=== PATIENT | male | born 1995 | race Caucasian/White ===

== ENCOUNTER → 2017-03-27 | Outpatient (CLI) | payer SELFPAY ==
--- NOTE | 2017-03-27 19:03 | REP ---
Right ankle series, complete: 03/27/2017: Clinical history: Right ankle pain. Findings: Four views show the mortise joint symmetric and preserved. There is no talar dome osteochondral defect. Distal tibia and fibula without fracture or focal lesion. Subtalar joints are intact. There is soft tissue swelling anterior and lateral to the ankle. There are no heel spurs. Talonavicular and calcaneocuboid joints are normal. Impression: 1. Soft tissue swelling anterior to the ankle without fracture, avulsion, disruption of the mortise joint or other acute finding. Signed by Alexi Samaniego MD 03/27/2017 09:28 P
--- NOTE | 2017-03-27 19:04 | REP ---
Right foot complete: 03/27/2017: Clinical history: Right foot pain. Soft tissue swelling of the ankle and hind foot, mild. The articulations of the talus, calcaneus and the tarsal bones as well as tarsal articulations are normal. Metatarsals are unremarkable. Phalanges intact. There is no fracture, subluxation or focal bone lesion. There is minor degenerative change along the lateral aspect of the first TMT joint. There is a bone island in the distal end of the proximal phalanx of the great toe. Impression: 1. Soft tissue swelling ankle and hind foot but no visible or displaced fracture, avulsion or subluxation. 2. Degenerative changes first MTP joint. Signed by Alexi Samaniego MD 03/27/2017 09:29 P
== END ==
LOC: M LRY 18:22
PROVIDERS: ATTEND Physician Assistant
DX: M25.571 Pain in right ankle and joints of right foot (principal); M79.89 Other specified soft tissue disorders; M19.071 Primary osteoarthritis, right ankle and foot

== ENCOUNTER → 2017-03-30 | Outpatient (REF) | payer OTHER | LOC: M SFHCLERA 10:34 | PROVIDERS: ATTEND Nurse Practitioner Family | DX: R53.81 Other malaise (principal) ==

== ENCOUNTER → 2017-04-25 | Outpatient (REF) | payer OTHER | LOC: M SFHCLERA 14:47 | PROVIDERS: ATTEND Nurse Practitioner Family | DX: J02.9 Acute pharyngitis, unspecified (principal) ==

== ENCOUNTER 2019-06-10 17:23 | Emergency (ER) | payer OTHER ==
[~2019-06-10] VITALS: Ht 177.8 cm; Wt 119.7 kg
--- NOTE | 2019-06-10 20:00 | REPVR ---
PROCEDURE INFORMATION: Exam: CT Head Without Contrast Exam date and time: 06/10/2019 7:18 PM Clinical history: 23 years old, male; Injury or trauma; Injury history: Seizure; Initial encounter; Additional info: Witnessed seizure TECHNIQUE: Imaging protocol: Computed tomography of the head without contrast. Radiation optimization: All CT scans at this facility use at least one of these dose optimization techniques: automated exposure control; mA and/or kV adjustment per patient size (includes targeted exams where dose is matched to clinical indication); or iterative reconstruction. COMPARISON: No relevant prior studies available. FINDINGS: Brain: No intracranial mass, mass effect or midline shift. No acute intracranial hemorrhage. No CT evidence of acute cortical infarct. Ventricles: Ventricles, cisterns, and sulci are normal in size for age. Bones/joints: No calvarial fracture or destructive process. Sinuses: Imaged paranasal sinuses are clear. Mastoid air cells: Mastoid air cells are normally aerated. Orbits: Imaged orbits are unremarkable. Soft tissues: No focal extracranial soft tissue swelling. IMPRESSION: No acute or concerning focal intracranial abnormality. Electronically signed by: Stan An On 06/10/2019 19:59:39 PM
[2019-06-10 20:07] LABS: HEMATOCRIT 48.9 % (42.0-52.0); HEMOGLOBIN 16.5 g/dl (13.5-17.5); MEAN CORPUSCULAR HEMOGLOBIN 30.8 pg (27.0-33.0); MEAN CORPUSCULAR HGB CONC 33.7 g/dl (32.0-36.5); MEAN CORPUSCULAR VOLUME 91.4 fl (80.0-96.0); PLATELET COUNT, AUTOMATED 221 10^3/uL (150-450); RED BLOOD COUNT 5.35 10^6/uL (4.30-6.10); WHITE BLOOD COUNT 8.3 10^3/uL (4.0-10.0)
[2019-06-10 20:37] LABS: ALT/SGPT 37 U/L (12-78); BILIRUBIN,TOTAL 0.3 MG/DL (0.2-1.0); BLOOD UREA NITROGEN 14 MG/DL (7-18); CALCIUM LEVEL 8.9 MG/DL (8.5-10.1); CARBON DIOXIDE LEVEL 28 MEQ/L (21-32); CHLORIDE LEVEL 108 MEQ/L (98-107); CREATININE FOR GFR 1.01 MG/DL (0.70-1.30); GLOMERULAR FILTRATION RATE > 60.0 (>60); GLUCOSE, FASTING 91 MG/DL (70-100); POTASSIUM SERUM 4.3 MEQ/L (3.5-5.1); SODIUM LEVEL 141 MEQ/L (136-145); TOTAL PROTEIN 6.9 GM/DL (6.4-8.2)
[2019-06-10 20:47] LABS: AMPHETAMINES LEVEL URINE NEGATIVE (NEGATIVE); BARBITURATES URINE NEGATIVE (NEGATIVE); BENZODIAZEPINES URINE NEGATIVE (NEGATIVE); CANNABINOIDS URINE NEGATIVE (NEGATIVE); COCAINE METABOLITE URINE NEGATIVE (NEGATIVE); METHADONE URINE NEGATIVE (NEGATIVE); OPIATES URINE NEGATIVE (NEGATIVE); PHENCYCLIDINE URINE NEGATIVE (NEGATIVE)
[2019-06-10 21:59] VITALS: BP 135/64
--- NOTE | 2019-06-11 07:51 | ECGEPIP ---
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
== END 2019-06-10 22:04 | disposition home or self-care (01) ==
LOC: M ED 17:23
DX: R25.1 Tremor, unspecified (principal); R00.1 Bradycardia, unspecified; F17.200 Nicotine dependence, unspecified, uncomplicated; F12.10 Cannabis abuse, uncomplicated; Z82.0 Family history of epilepsy and other diseases of the nervous system; Z88.0 Allergy status to penicillin

== ENCOUNTER → 2019-11-27 | Outpatient (CLI) | payer OTHER | LOC: M LABSMTC 10:43 | PROVIDERS: ATTEND Family Medicine | DX: Z11.59 Encounter for screening for other viral diseases (principal); Z20.828 Contact with and (suspected) exposure to other viral communicable diseases ==

== ENCOUNTER 2020-05-12 12:54 | Emergency (ER) | payer OTHER ==
[~2020-05-12] VITALS: Ht 175.3 cm; Wt 129.7 kg
--- NOTE | 2020-05-12 13:49 | REPVR ---
PROCEDURE INFORMATION: Exam: CT Head Without Contrast Exam date and time: 05/12/2020 1:41 PM Age: 24 years old Clinical indication: Syncope and collapse TECHNIQUE: Imaging protocol: Computed tomography of the head without contrast. Radiation optimization: All CT scans at this facility use at least one of these dose optimization techniques: automated exposure control; mA and/or kV adjustment per patient size (includes targeted exams where dose is matched to clinical indication); or iterative reconstruction. COMPARISON: CT Head without contrast 06/10/2019 7:16 PM FINDINGS: Brain: Normal. No hemorrhage. Unremarkable white matter. No mass effect. Ventricles: No ventriculomegaly. Bones/joints: Unremarkable. No acute fracture. Paranasal sinuses: Visualized sinuses are unremarkable. No fluid levels. Mastoid air cells: Visualized mastoid air cells are well aerated. Soft tissues: Unremarkable. IMPRESSION: No acute intracranial abnormality. Electronically signed by: Shantelle Ramirez On 05/12/2020 13:48:58 PM
[2020-05-12 14:14] LABS: BASO # 0.1 10^3/uL (0.0-0.2); BASO % 0.6 % (0.0-1.0); EOS # 0.1 10^3/uL (0.0-0.5); HEMATOCRIT 49.3 % (42.0-52.0); HEMOGLOBIN 16.8 g/dl (13.5-17.5); LYMPH # 2.1 10^3/uL (1.5-5.0); LYMPH % 23.7 % (24.0-44.0); MEAN CORPUSCULAR HEMOGLOBIN 30.6 pg (27.0-33.0); MEAN CORPUSCULAR HGB CONC 34.1 g/dl (32.0-36.5); MEAN CORPUSCULAR VOLUME 89.8 fl (80.0-96.0); MONO # 0.7 10^3/uL (0.0-0.8); MONO % 7.5 % (0.0-5.0); NEUTROPHILS # 5.9 10^3/uL (1.5-8.5); NEUTROPHILS % 66.5 % (36.0-66.0); PLATELET COUNT, AUTOMATED 201 10^3/uL (150-450); RED BLOOD COUNT 5.49 10^6/uL (4.30-6.10); WHITE BLOOD COUNT 8.8 10^3/uL (4.0-10.0)
--- NOTE | 2020-05-12 14:14 | REPVR ---
PROCEDURE INFORMATION: Exam: XR Chest, 1 View Exam date and time: 05/12/2020 1:50 PM Age: 24 years old Clinical indication: Other: Syncope; Additional info: Syncope/near-syncope TECHNIQUE: Imaging protocol: XR of the chest Views: 1 view. COMPARISON: No relevant prior studies available. FINDINGS: Lungs: Unremarkable. No consolidation. Pleural space: Unremarkable. No pleural effusion. No pneumothorax. Heart/Mediastinum: Unremarkable. No cardiomegaly. Bones/joints: There is a mild thoracic dextroscoliosis. IMPRESSION: No evidence for acute pulmonary disease. Electronically signed by: Adeel Anne On 05/12/2020 14:14:01 PM
[2020-05-12] MEDS ORDERED: KEPP1TAB2 PO (14:52)
[2020-05-12 14:53] LABS: BLOOD UREA NITROGEN 16 MG/DL (7-18); CALCIUM LEVEL 9.2 MG/DL (8.5-10.1); CARBON DIOXIDE LEVEL 26 MEQ/L (21-32); CHLORIDE LEVEL 110 MEQ/L (98-107); ETHYL ALCOHOL (ETHANOL) < 0.003 % (0.000-0.010); FREE T4 0.98 NG/DL (0.76-1.46); GLOMERULAR FILTRATION RATE > 60.0 (>60); GLUCOSE, FASTING 87 MG/DL (70-100); POTASSIUM SERUM 3.9 MEQ/L (3.5-5.1); SODIUM LEVEL 139 MEQ/L (136-145)
[2020-05-12 15:36] LABS: AMPHETAMINES LEVEL URINE NEGATIVE (NEGATIVE); BARBITURATES URINE NEGATIVE (NEGATIVE); BENZODIAZEPINES URINE NEGATIVE (NEGATIVE); CANNABINOIDS URINE POSITIVE (NEGATIVE); COCAINE METABOLITE URINE NEGATIVE (NEGATIVE); METHADONE URINE NEGATIVE (NEGATIVE); OPIATES URINE NEGATIVE (NEGATIVE); PHENCYCLIDINE URINE NEGATIVE (NEGATIVE)
[2020-05-12 15:45] VITALS: BP 128/74
--- NOTE | 2020-05-12 20:35 | ECGEPIP ---
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
== END 2020-05-12 15:55 | disposition home or self-care (01) ==
LOC: M ED 12:54
DX: R56.9 Unspecified convulsions (principal); F90.9 Attention-deficit hyperactivity disorder, unspecified type; F17.200 Nicotine dependence, unspecified, uncomplicated; Z88.0 Allergy status to penicillin
CPT/HCPCS: 36415; 70450; 71045; 80048; 80307; 83735; 84439; 84443; 85025; 93005; 93041; 94760; 99285; G0480

== ENCOUNTER → 2020-09-16 | Outpatient (CLI) | payer OTHER ==
[~2020-09-16] MED LIST: KEPP1TAB2 PO
== END ==
LOC: M LABSMTC 10:21
PROVIDERS: ATTEND Pediatrics
DX: Z20.828 Contact with and (suspected) exposure to other viral communicable diseases (principal)